=== PATIENT | female | born 1995 | race Two or more races ===

== ENCOUNTER 2021-01-14 21:36 | Emergency (ER) | payer MEDICAID ==
[~2021-01-14] VITALS: Ht 154.9 cm; Wt 45.0 kg
[2021-01-14 22:19] VITALS: BP 91/60
== END 2021-01-15 00:59 | disposition left against medical advice (07) ==
LOC: ER 21:36
DX: Z53.21 Procedure and treatment not carried out due to patient leaving prior to being seen by health care provider (principal)